=== PATIENT | female | born 1995 | race Caucasian/White ===

== ENCOUNTER 2016-08-13 09:02 | Day surgery (SDC) | payer BC, OTHER ==
[2016-08-13] MEDS ORDERED: Lactated Ringers 1,000 ML IV SCH (10:00)
[2016-08-13] MEDS ORDERED: fentaNYL 250 MCG/5 ML SDV ONE (10:05)
[2016-08-13] MEDS ORDERED: Rocuronium 50 MG/5 ML Vial ONE (10:05)
[2016-08-13] MEDS ORDERED: Midazolam 1 MG/ML 2 ML SDV ONE (10:05)
[2016-08-13] MEDS ORDERED: Ondansetron 4 MG/2 ML SDV ONE (10:05)
[2016-08-13] MEDS ORDERED: Neostigmine Methylsulfate 1 MG/ML 5 ML Syringe ONE (10:05)
[2016-08-13] MEDS ORDERED: Dexamethasone 4 MG/ML SDV ONE (10:05)
[2016-08-13] MEDS ORDERED: Propofol 200 MG/20 ML SDV ONE (10:05)
[2016-08-13] MEDS ORDERED: Oxymetazoline 0.05% Nasal Spray 15 ML Bottle ONE (10:15)
[2016-08-13] MEDS ORDERED: Oxymetazoline 0.05% Nasal Spray 15 ML Bottle NASBOTH ONE ×2 (10:30)
[2016-08-13] MEDS ORDERED: Meperidine PF 25 MG/ML Syringe IM PRN (11:11)
[2016-08-13] MEDS ORDERED: Acetaminophen/HYDROcodone 108-2.5 MG/5 ML Soln 15 ML UD Cup PO ONE (12:45)
[2016-08-13 13:27] VITALS: BP 136/93
== END 2016-08-13 13:13 | disposition home or self-care (01) ==
LOC: JP.SDS 09:02
PROVIDERS: ATTEND Otolaryngology
PROC: 0CTPXZZ Resection of Tonsils, External Approach (ICD-10-PCS; principal; 2016-08-13)
PROC: 0CTQXZZ Resection of Adenoids, External Approach (ICD-10-PCS; 2016-08-13)
DX: J35.01 Chronic tonsillitis (principal)
CPT/HCPCS: 42821; 88304; A9270; J1100; J2175; J2250; J2405; J2704; J3010; J7120